=== PATIENT | female | born 1945 | race Caucasian/White ===

== ENCOUNTER → 2017-09-09 | Outpatient (CLI) | payer MEDICARE ==
[2015-01-26 13:20] VITALS: BMI 48.1
[~2017-09-09] MED LIST: ALB18R INH; ALBU8.5H IH; AMLO-1 PO; ASPI-715 PO; ASPI-839 PO; ASPI1TAB23 PO; CALC-797 PO; CALC600T63 PO; CEPH-13 PO; CHOL100094 PO; CLIN300C99 PO; DICL-192 PO; DICL-195 PO; DILT120C18 PO; DILT240C4 PO; DILT240T PO; DOC100 PO; DOXA1TAB38 PO; FERR325T24 PO; FLUT1DIS28 IH; FOLI0.4T56 PO; FURO40TA35 PO; GABA-547 PO; GABA-551 PO; GUAI600T57 PO; IBUP-1687 PO; IBUP1TAB90 PO; LEVO750T27 PO; LICO1POW MC; LOR5 PO; LOR5/325 PO; LOSA100T68 PO; MAGN250T29 PO; MAGN400C PO; METH-278 PO; METH-280 PO; METO200T32 PO; OMEG-26 PO; OMEG500C5 PO; OMEP-114 PO; OMEP-218 PO; OXYB15TA17 PO; OXYC-865 PO; OXYGENHOME INH; OXYXL5 PO; PEG4000S14 PO; POLY17PO25 PO; POTA2TAB29 PO; PSYL3.4P2 PO; PYRI50CA PO; ROPI1TAB36 PO; SPIR25TA76 PO; SPIR25TA78 PO; TRIA15CR40 TP; [UNRECOGNIZED DRUG - OTHER] PO
--- NOTE | 2017-09-09 15:53 | RADIOLOGY IMAGING REPORT ---
FACILITY: [facility] PATIENT NAME: SAMUEL SHIPMAN : [id number] MR: [id number] V: [id number] EXAM DATE: ORDERING PHYSICIAN: MARTHA OATES TECHNOLOGIST: Yady Napoles PROCEDURE:BILATERAL DIGITAL SCREENING MAMMOGRAM WITH CAD ASSISTED INTERPRETATION & 3D TOMOSYNTHESIS COMPARISON:Prior mammograms 03/21/14. INDICATIONS:Screening FINDINGS: A small amount of fibroglandular tissue is seen throughout the breasts. The parenchymal pattern has remained stable allowing for difference in mammographic technique & patient positioning. There is no evidence of malignant appearing mass, malignant appearing calcifications or other secondary sign of malignancy in either breast. DIAGNOSTIC CATEGORY 1--NEGATIVE. RECOMMENDATIONS: ROUTINE MAMMOGRAM AND CLINICAL EVALUATION. IMPRESSION: BIRADS 1: Negative No significant abnormality is seen Dictated by: Bianka Rutledge M.D. on 09/09/2017 at 14:36 Transcribed by: JOSIE on 09/09/2017 at 14:44 Approved by: Bianka Rutledge M.D. on 09/09/2017 at 15:52 [facility]
== END ==
LOC: MAMO 01:11
PROVIDERS: ATTEND Family Medicine
DX: Z12.31 Encounter for screening mammogram for malignant neoplasm of breast (principal)
CPT/HCPCS: 77063; 77067

== ENCOUNTER → 2018-04-06 | Outpatient (CLI) | payer MEDICARE ==
[2015-01-26 13:20] VITALS: BMI 48.1
[~2018-04-06] MED LIST changes: +FLU180SY11 IM; -SPIR25TA78 PO; +SPIR25TA80 PO
== END ==
LOC: US 01:55
PROVIDERS: ATTEND Internal Medicine
DX: I51.7 Cardiomegaly (principal); I71.2 Thoracic aortic aneurysm, without rupture
CPT/HCPCS: 93306

== ENCOUNTER → 2018-06-13 | Outpatient (CLI) | payer MEDICARE ==
[2015-01-26 13:20] VITALS: BMI 48.1
[~2018-06-13] MED LIST changes: +DILT120C12 PO; -DILT120C18 PO
[2018-06-13 09:32] LABS: LDL CHOLESTEROL 66 mg/dl
== END ==
LOC: LAB 08:48
PROVIDERS: ATTEND Internal Medicine
DX: I35.0 Nonrheumatic aortic (valve) stenosis (principal); I35.1 Nonrheumatic aortic (valve) insufficiency; I51.7 Cardiomegaly; I10 Essential (primary) hypertension
CPT/HCPCS: 36415; 82310; 82374; 82435; 82465; 82565; 82947; 83718; 84132; 84295; 84478; 84520

== ENCOUNTER → 2018-09-07 | Outpatient (CLI) | payer MEDICARE ==
[2015-01-26 13:20] VITALS: BMI 48.1
[2018-09-07 12:08] LABS: LDL CHOLESTEROL 69 mg/dl
== END ==
LOC: LAB 11:31
PROVIDERS: ATTEND Internal Medicine
DX: I10 Essential (primary) hypertension (principal); I35.0 Nonrheumatic aortic (valve) stenosis; I35.1 Nonrheumatic aortic (valve) insufficiency; I51.7 Cardiomegaly
CPT/HCPCS: 36415; 82310; 82374; 82435; 82465; 82565; 82947; 83718; 84132; 84295; 84478; 84520

== ENCOUNTER 2018-12-26 12:37 | Outpatient (RCR) | payer MEDICARE ==
[2015-01-26 13:20] VITALS: BMI 48.1
--- NOTE | 2018-12-26 14:24 | RADIOLOGY IMAGING REPORT ---
FACILITY: [facility] [place] PATIENT NAME: Brie Edwards : 1945 MR: [id number] V: [id number] EXAM DATE: ORDERING PHYSICIAN: NO OTHER TECHNOLOGIST: Location: [facility] [place] Patient: Brie Edwards : 1945 Visit/Account:[id number] Date of Sevice: 12/26/2018 MR SPINE CERVICAL W/O CON COMPARISON: None Additional pertinent history: Spinal stenosis with neck pain Technique: Multiplanar multisequence cervical spine MRI was performed without gadolinium enhancement. FINDINGS: Vertebral body height and alignment: Moderate anterior listhesis of C4 on C5. Reversal of normal cer vical lordosis centered at C6-C7. Vertebral marrow signal: Negative Vertebral bodies: Anteriorly and posteriorly directed osteophytes at multiple levels. Cervical spinal cord signal, craniocervical junction and visualized posterior fossa: Negative Surrounding soft tissues: Negative Inspection of the disc spaces reveal the following: C1-C2: Negative C2-C3: Negative C3-C4: Circumferential disc bulging with a superimposed right lateral canal and right neural foramina l disc extrusion with associated osteophyte formation. Severe right-sided neural foraminal narrowing . Moderate canal stenosis. Mild left-sided neural foraminal narrowing. C4-C5: Moderate anterior listhesis of C4 on C5. Posterior broad-based disc protrusion with facet hyp ertrophic changes. Severe canal stenosis and severe bilateral neural foraminal narrowing. C5-C6: Facet and uncovertebral degenerative changes. Mild bilateral neural foraminal narrowing with moderate canal stenosis. C6-C7: Posterior broad-based disc protrusion with facet hypertrophic changes. Severe bilateral neura l foraminal narrowing and severe canal stenosis. C7-T1: Posterior broad-based disc protrusion with facet hypertrophic changes. Moderate right-sided n eural foraminal narrowing. Mild left-sided neural foraminal narrowing. No canal stenosis. Impression: 1. Multilevel spondylytic change as discussed above. 2. Findings felt to be most significant at C6-C7 with severe bilateral neural foraminal narrowing an d severe canal stenosis. Report Dictated By: Norman Guy MD at 12/26/2018 2:03 PM Report E-Signed By: Norman Guy MD at 12/26/2018 2:17 PM WSN:[id number]
== END 2018-12-27 18:00 | disposition home or self-care (01) ==
LOC: MRI 12:37 → EDSTATUS 12:37 → MRI 12-27 18:00
PROVIDERS: ATTEND Physician Assistant Surgical
DX: M51.36 Other intervertebral disc degeneration, lumbar region (principal); M43.26 Fusion of spine, lumbar region; M51.26 Other intervertebral disc displacement, lumbar region; M50.320 Other cervical disc degeneration, mid-cervical region, unspecified level; M48.02 Spinal stenosis, cervical region; M47.12 Other spondylosis with myelopathy, cervical region
CPT/HCPCS: 72141; 72158; A9577